=== PATIENT | male | born 1970 | race Caucasian/White ===

== ENCOUNTER 2016-12-02 19:23 | Emergency (ER) | payer OTHER ==
[2016-12-02 19:47] VITALS: BP 118/86
[2016-12-02] MEDS ORDERED: Iopamidol 755 Mg/ML 100 ML Bottle IV SCH (20:00)
[2016-12-02] MEDS ORDERED: Sodium Chloride 0.9% 1,000 ML IV SCH (20:00)
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
== END 2016-12-02 22:15 | disposition home or self-care (01) ==
LOC: FB.ED 19:23
DX: R19.7 Diarrhea, unspecified (principal); R10.33 Periumbilical pain; R91.8 Other nonspecific abnormal finding of lung field; F17.210 Nicotine dependence, cigarettes, uncomplicated; K21.9 Gastro-esophageal reflux disease without esophagitis
CPT/HCPCS: 74177; 80053; 80305; 81001; 82150; 83605; 85025; 96360; 96361; 99284; J7040